=== PATIENT | male | born 1955 | race Caucasian/White ===

== ENCOUNTER → 2018-06-02 | Outpatient (CLI) | payer BC ==
[2018-06-02 10:20] LABS: Appearance,Urine Clear (Clear); Bilirubin,Urine Negative (Negative); Blood,Urine Negative (Negative); Color,Urine Colorless; Glucose,Urine (UA) Negative (Negative); Ketones,Urine Negative (Negative); Leukocyte Esterase,Urine Negative (Negative); Nitrite,Urine Negative (Negative); Protein,Urine Negative (Negative); Specific Gravity,Urine 1.001 (1.001-1.035); Urobilinogen,Urine <2.0 mg/dL (<2.0)
[2018-06-02 10:27] LABS: HCT 49.1 % (39.0-53.0); HGB 15.9 gm/dL (13.0-17.5); MCH 30.6 pg (25.0-35.0); MCHC 32.4 g/dL (31.0-37.0); MCV 94.5 fL (80.0-100.0); Mean Platelet Volume 5.9; Platelet Count 259 k/uL (150-450); RBC 5.19 m/uL (4.30-5.90); RDW 12.4 % (11.5-15.5); WBC 6.6 k/uL (3.8-10.6)
[2018-06-02 10:28] LABS: INR 0.9 (<1.2); Partial Thromboplastin Time 24.2 sec (22.0-30.0); Prothrombin Time 9.7 sec (9.0-12.0)
[2018-06-02 10:35] LABS: Albumin 4.3 g/dL (3.5-5.0); Anion Gap 6 mmol/L; Blood Urea Nitrogen 11 mg/dL (9-20); Calcium 9.5 mg/dL (8.4-10.2); Carbon Dioxide 29 mmol/L (22-30); Chloride 106 mmol/L (98-107); Glucose 115 mg/dL (74-99); Sodium 141 mmol/L (137-145); Total Bilirubin 0.9 mg/dL (0.2-1.3); Total Protein 7.2 g/dL (6.3-8.2)
[2018-06-02 11:23] LABS: AST 32 U/L (17-59); Potassium 5.8 mmol/L (3.5-5.1)
[2018-06-02 11:24] LABS: ALT 31 U/L (21-72); Alkaline Phosphatase 48 U/L (38-126)
== END ==
LOC: LABPAT 09:42
PROVIDERS: ATTEND Orthopaedic Surgery
DX: Z01.812 Encounter for preprocedural laboratory examination (principal)
CPT/HCPCS: 80053; 81003; 85027; 85610; 85730; 87070

== ENCOUNTER 2018-06-14 07:05 | Inpatient (IN) | payer BC ==
[2018-06-10 09:13] VITALS: BMI 24.7
[~2018-06-14 07:05] MED LIST: ACETAMINOPHEN TAB 500 MG TAB PO ONE; HYDROmorphone 0.5 MG/0.5 ML SYRINGE IVP PRN; LIDOCAINE 1% 20 ML VIAL (10MG/ML) FOR IV START INTRADERMA PRN; MELOXICAM 7.5 MG TAB PO ONE; ONDANSETRON 4 MG/2 ML VIAL IVP ONE; ROPIVACAINE 246.25 MG, EPINEPHrine 0.5 MG, KETOROLAC 30 MG, cloNIDine HCL/PF 80 MCG, WA... MISCELLANE ONE; TRANEXAMIC ACID 1,000 MG in SODIUM CHLORIDE 0.9% 50 ML IVPB ONE; ceFAZolin IN SWFI 2 GM/20 ML SYRINGE IVP ONE
[2018-06-14] MEDS: LACTATED RINGERS 1,000 ML IV SCH (07:42)
[2018-06-14] MEDS ORDERED: ONDANSETRON 4 MG/2 ML VIAL IVP PRN (08:58)
[2018-06-14] MEDS ORDERED: NALOXONE 0.4 MG/ML 1 ML VIAL IV PRN (08:58)
[2018-06-14] MEDS ORDERED: DIAZEPAM 5 MG TAB PO PRN (08:58)
[2018-06-14] MEDS ORDERED: HYDROmorphone 1 MG/ML 1 ML SYRINGE IVP PRN (08:58)
[2018-06-14] MEDS ORDERED: MAGNESIUM HYDROXIDE 2,400 MG/10 ML CUP PO PRN (08:58)
[2018-06-14] MEDS ORDERED: hydrOXYzine PAMOATE 25 MG CAP PO PRN (08:58)
[2018-06-14] MEDS ORDERED: HYDROcodone/APAP 5-325MG 1 EACH TAB PO PRN (08:58)
[2018-06-14] MEDS ORDERED: HYDROmorphone 0.5 MG/0.5 ML SYRINGE IVP PRN ×2 (08:58)
[2018-06-14] MEDS ORDERED: HEPARIN SODIUM,PORCINE 10,000 UNIT/ML 1 ML VIAL ONE (09:29)
[2018-06-14] MEDS ORDERED: TRANEXAMIC ACID 1,000 MG/10 ML VIAL ONE (09:29)
[2018-06-14] MEDS ORDERED: SODIUM CHLORIDE 0.9% 100 ML BAG ONE (09:29)
[2018-06-14] MEDS ORDERED: LACTATED RINGERS 1,000 ML BAG IV ONE (09:29)
[2018-06-14] MEDS ORDERED: PROPOFOL 10 MG/ML 20 ML VIAL IV ONE (09:29)
[2018-06-14] MEDS ORDERED: MIDAZOLAM 2 MG/2 ML VIAL ONE (09:29)
[2018-06-14] MEDS ORDERED: ceFAZolin 3,000 MG in SODIUM CHLORIDE 0.9% IRRIGATIO 3,000 ML IRRIGATION ONE (09:34)
[2018-06-14] MEDS ORDERED: LACTATED RINGERS 1,000 ML IV ONE ×3 (09:40→12:42)
--- NOTE | 2018-06-14 10:57 | P.OP ---
Date of Procedure: 06/14/18 Preoperative Diagnosis: Severe osteoarthritis left hip Postoperative Diagnosis: Severe osteoarthritis left hip Procedure(s) Performed: Left total hip arthroplasty with a direct anterior approach Implants: Szymanski and nephew Polarstem size 4 lateral Szymanski [employer] Nephew R3, 3 hole acetabular shell, 54 mm Szymanski [employer] Nephew reflection 6.5 mm cancellus screw, 20 mm 2 Szymanski [employer] Nephew R3, XLPE 20 acetabular liner Szymanski & Nephew Oxinium femoral head 36 m, +0 All components were press-fit. The articulation is Oxinium on polyethylene. Anesthesia: spinal Surgeon: Alexander Curtis Nurse Transplant #1: Mayte Chery Estimated Blood Loss (ml): 225 (55 mL returned with Cell Saver) Pathology: other (Femoral head) Condition: stable Disposition: PACU Indications for Procedure: After failure of conservative treatment we discussed the surgical and nonsurgical treatment options at length. Patient wishes to proceed with a total hip arthroplasty with a direct anterior approach. Complications specific to this procedure were discussed at length, including but not limited to infection, leg length discrepancy, dislocation, and nerve injury. Patient is aware of all these complications and informed consent was obtained Operative Findings: The operative findings are consistent with severe osteoarthritis of the left hip Description of Procedure: Patient was seen and evaluated in the preoperative area, consent was reviewed, and the surgical site was marked with a skin marker. Patient was then brought to the operating room and given prophylactic antibiotics intravenously. 1 g of Tranexamic acid was also given. A spinal anesthetic was administered by the anesthesia department. The patient was then placed on the [place] table with the bony prominences well-padded. The hip area was then prepped and draped in usual sterile fashion. A universal timeout was then performed, which confirmed the patient's name, surgical site, ALLERGIES, and procedure being performed. Next the incision site was located at 1 cm distal and 1 cm lateral to the anterior superior iliac spine. The skin and subcutaneous tissues were sharply incised. Incision was carefully dissected down to the fascia overlying the tensor fascia fidelina muscle. This fascia was then incised in line with the incision. Next, using blunt finger dissection, the tensor fascia fidelina muscle was dissected off its investing fascia. The muscle was then carefully retracted laterally with a cobra retractor over the lateral neck of the femur. Next, the circumflex vessels were identified and cauterized using the AquaMantis device. The anterior hip capsule was then exposed. The capsule was then opened and an inverted T fashion. Cobra retractors were then placed intracapsularly. The proximal femur was then visualized. The femoral neck was then osteotomized appropriate level above the lesser trochanter. Small amount of traction was placed with the [place] table. A small wedge of bone was then removed from the remaining femoral head. Next, using a corkscrew femoral head was easily removed from the acetabulum. On gross visual inspection, the femoral head had complete loss of articular cartilage in multiple periarticular osteophytes. Attention was then turned to the acetabulum. the acetabulum was exposed and any remaining labrum was excised. Sequential reaming of the acetabulum was performed using fluoroscopic guidance. When the appropriate size was reached, a trial was then placed. The position and fit of the trial was checked with fluoroscopy. The trial was then removed. Then, using fluoroscopic guidance, the final implant was impacted at 20 of anteversion and 40 of abduction, and fully seated in the acetabulum. 2 screws were then placed in the acetabulum. Again fluoroscopy was used to check position of the screws. Next, the liner was then impacted, with a 20 elevated liner located in the anterior superior quadrant. Component locking was confirmed. Attention was then directed to the femur. With the aid of the [place] table, the femur was externally rotated to approximately 130, extended, and abducted under the opposite leg. A side hook was then placed under the proximal femur, and the side hook elevator was used to elevate the proximal femur. Retractors were then placed. A capsular release was performed, as well as a release of the conjoined tendon, which afforded excellent visualization of the proximal femur. Next, a box osteotome was used to lateralize the proximal femur. A filling hand was then used to locate the femoral canal. Sequential broaching was then performed with appropriate size which afforded excellent fixation in the proximal femur. A trial was then placed with appropriate head and neck, and the hip was gently reduced with the aid of the [place] table. Fluoroscopy was then used to check position of the components, as well as to ensure equal leg lengths. The hip was then gently dislocated and the trials were then removed. Final implants were then impacted and the hip was again reduced. Final fluoroscopic x-rays confirmed that the components were in anatomic position, as well as equal leg lengths. The hip was also taken through range of motion, and found to be stable. The hip was then copiously irrigated with antibiotic solution with pulsatile lavage. The hip was then irrigated with Irrisept solution. The soft tissues were then injected with a ropivacaine solution, which consisted of 246.25 mg of ropivacaine, 0.5 mg of epinephrine, 30 mg of Toradol, 80 g of clonidine, and 48.45 mL of sterile water, for a total of 100 mL of fluid injected. A second dose of 1 g of Tranexamic acid was also given. the fascia was then closed with 2-0 strata fix suture. The subcutaneous tissue was closed with 3-0 Vicryl. The subcuticular tissue was closed with 3-0 strata fix suture. The skin was then closed with Dermabond glue and a sterile silver dressing. The patient was then transferred to the recovery room in stable condition. The leasing assistant SUE Biggs was required due to the complexity of surgery, and the need for skilled certified surgical technician for positioning, draping, exposure, retraction, and closure of the wound.
--- NOTE | 2018-06-14 11:19 | XR ---
EXAMINATION TYPE: XR Hip Limited LT DATE OF EXAM: 06/14/2018 COMPARISON: NONE HISTORY: Postop TECHNIQUE: One view submitted. FINDINGS: There is a prosthetic hip in near anatomic alignment. There is soft tissue edema and emphysema. IMPRESSION: 1. Postoperative change. Appears in near-anatomic alignment.
--- NOTE | 2018-06-14 11:29 | FL ---
Fluoroscopy History: LT HIP-ANT 42 sec fl time.
--- NOTE | 2018-06-14 11:38 | XR ---
EXAMINATION TYPE: XR Hip Limited LT DATE OF EXAM: 06/14/2018 COMPARISON: NONE HISTORY: Postop TECHNIQUE: One view submitted. FINDINGS: There is a prosthetic hip in near anatomic alignment. There is soft tissue edema and emphysema. Line ar density along the lateral margin of the soft tissues may be related to soft tissue artifact and sh ould be correlated clinically. IMPRESSION: 1. Postoperative change. Appears in near-anatomic alignment.
[2018-06-14] MEDS: SODIUM CHLORIDE 0.9% 1,000 ML IV SCH ×2 (16:20→23:15)
[2018-06-14] MEDS ORDERED: ACETAMINOPHEN TAB 325 MG TAB PO PRN (16:41)
[2018-06-14] MEDS: ceFAZolin IN SWFI 2 GM/20 ML SYRINGE IVP SCH (16:56)
[2018-06-14] MEDS ORDERED: SENNOSIDES-DOCUSATE SODIUM 1 EACH TAB PO SCH (21:00)
[2018-06-14] MEDS ORDERED: ACETAMINOPHEN TAB 500 MG TAB PO PRN ×3 (21:09→22:13)
[2018-06-14] MEDS: ASPIRIN 325 MG TAB PO SCH (22:20)
[2018-06-15 00:46] VITALS: TEMP 98.9
[2018-06-15] MEDS: ceFAZolin IN SWFI 2 GM/20 ML SYRINGE IVP SCH (02:52)
[2018-06-15] MEDS: HYDROcodone/APAP 5-325MG 1 EACH TAB PO PRN ×2 (03:07→13:54)
[2018-06-15] MEDS: LACTATED RINGERS 1,000 ML IV SCH (07:01)
[2018-06-15 07:18] LABS: Basophils % (A) 0 %; Eosinophils # (A) 0.2 k/uL (0-0.7); Eosinophils % (A) 2 %; HCT 38.1 % (39.0-53.0); Lymphocytes # (A) 1.1 k/uL (1.0-4.8); Lymphocytes % (A) 9 %; MCH 31.6 pg (25.0-35.0); MCHC 33.9 g/dL (31.0-37.0); MCV 93.2 fL (80.0-100.0); Mean Platelet Volume 6.5; Monocytes # (A) 0.5 k/uL (0-1.0); Monocytes % (A) 5 %; Neutrophils # (A) 9.2 k/uL (1.3-7.7); Neutrophils % (A) 83 %; Platelet Count 189 k/uL (150-450); RBC 4.09 m/uL (4.30-5.90); RDW 12.5 % (11.5-15.5); WBC 11.1 k/uL (3.8-10.6)
[2018-06-15 07:43] LABS: HGB 12.9 gm/dL (13.0-17.5)
[2018-06-15 07:56] VITALS: BP 106/67; PULSE 69; RESP 16
[2018-06-15] MEDS: ASPIRIN 325 MG TAB PO SCH (08:35)
--- NOTE | 2018-06-15 08:59 | P.DS ---
Providers Date of admission: 06/14/18 07:05 Expected date of discharge: 06/15/18 Attending physician: Alexander Curtis Consults: 06/14/18 08:58 Consult Physician Routine Consulting Provider: Wong Liriano Reason/Comments: medical management Do you want consulting provider notified?: Yes Primary care physician: Hari Lyn Kut - Discharge Diagnosis(es) (1) Osteoarthritis of left hip Current Visit: Yes Status: Acute (2) Status post total hip replacement, left Current Visit: Yes Status: Acute Hospital Course: This is a 62-year-old male with known history of degenerative arthritis of the left hip. The patient presents for evaluation. After discussion and consideration patient elects to proceed with total hip arthroplasty. The patient is seen preoperatively by Dr. Curtis and medically cleared for surgery by their primary care physician. Patient is admitted to [facility] on 06/14/2018 for total hip arthroplasty. The procedures performed without complication or sequelae. The patient is doing well postoperatively. Labs and vital signs are stable on day of discharge. On day of discharge patient's hip incision is healing well. There is minimal erythema. There is no drainage noted at this time. There is minimal soft tissue swelling to the hip and thigh. Patient has full foot and ankle motion without difficulty or pain. Neurovascular status to the left lower extremity is intact. Patient is discharged home in good condition. Please see med rec for accurate list of home medications. Plan - Discharge Summary Discharge Rx Participant: No New Discharge Prescriptions: New Aspirin 325 mg PO BID #60 tab HYDROcodone/APAP 5-325MG [[place] 5-325] 1 - 2 tab PO Q6H PRN #56 tab PRN Reason: Pain Sennosides [Senokot] 1 tab PO BID #60 tablet No Action Multivit-Min/FA/Lycopen/Lutein [Centrum Silver Tablet] 1 tab PO DAILY Acetaminophen Tab [Tylenol Tab] 500 mg PO DAILY PRN PRN Reason: Pain Ibuprofen [Motrin] 600 mg PO BID PRN PRN Reason: Pain Discharge Medication List Acetaminophen Tab [Tylenol Tab] 500 mg PO DAILY PRN 06/10/18 [History] Multivit-Min/FA/Lycopen/Lutein [Centrum Silver Tablet] 1 tab PO DAILY 06/10/18 [ History] Ibuprofen [Motrin] 600 mg PO BID PRN 01/29/19 [History] Aspirin 325 mg PO BID #60 tab 06/15/18 [Rx] HYDROcodone/APAP 5-325MG [[place] 5-325] 1 - 2 tab PO Q6H PRN #56 tab 06/15/18 [Rx ] Sennosides [Senokot] 1 tab PO BID #60 tablet 06/15/18 [Rx] Follow up Appointment(s)/Referral(s): Alexander Curtis DO [Doctor of Osteopathic Medicine] - 2 Weeks Activity/Diet/Wound Care/Special Instructions: Weightbearing as tolerated with walker. Leave dressing intact. Dressing may be removed by home care nurse in 10 days. May shower with dressing on. Please follow-up with [facility] in 2 weeks and call with any questions or concerns, . Discharge Disposition: HOME WITH HOME HEALTH SERVICES
[2018-06-15] MEDS ORDERED: MELOXICAM 7.5 MG TAB PO SCH (09:00)
--- NOTE | 2018-06-15 11:22 | P.CONS ---
History of Present Illness - Reason for Consult Consult date: 06/14/18 medical management Requesting physician: Alexander Curtis - Chief Complaint left total hip arthroplasty - History of Present Illness 8-year-old male one of Dr. Hanson patient with past medical history of severe arthritis BPH who has been suffering from bilateral hip pain since 89 according to him has been getting much worse in the last year become over 7 out of 10 in severity both side are bad the left is worse than the right side. Patient was seen and evaluated as an outpatient with Dr. Curtis and schedule elective left total hip arthroplasty which was done successfully on 06/14/2018. Patient was admitted to the floor afterward restart home meds, patient is hemodynamically stable and feeling well. Review of Systems CONSTITUTIONAL: Well-developed no acute respiratory distress. EYES: No icterus sclerae, no conjunctivitis. EARS, NOSE, MOUTH, THROAT, and FACE: No sore throat, lymphadenopathy, carotid bruits or deformity. RESPIRATORY: No SOB cough or wheezes. CARDIOVASCULAR: No CP, Palpitation, PND, Orthopnea, or angina. GASTROINTESTINAL: No Abd pain, Nausea or vomiting, no Diarrhea or constipation, No GI Bleed, no distention or masses. GENITOURINARY: Negative for Hematuria or UTI, no kidney stones. INTEGUMENT/BREAST: Negative for any muscular injury with mild osteoarthritis.. HEMATOLOGIC/LYMPHATIC: Negative for bleed or purpura. MUSCULOSKELTAL: Incision and the hip looks fine still have mild soreness and discomfort still complaining of right hip pain as well. NEURLOGICAL: No LOC, Sz or syncope, blurred vision dizziness or abnormality.. BEHAVIORAL/PSYCH: Negative. ENDOCRINE: Negative. Past Medical History Past Medical History: Osteoarthritis (OA) Additional Past Medical History / Comment(s): recent cut to left hand no signs of infection to report to any signs of infection History of Any Multi-Drug Resistant Organisms: None Reported Additional Past Surgical History / Comment(s): hemorrhoid removal 1995 Past Anesthesia/Blood Transfusion Reactions: No Reported Reaction Past Psychological History: No Psychological Hx Reported Smoking Status: Former smoker Past Alcohol Use History: Daily Additional Past Alcohol Use History / Comment(s): smoked 30 yrs 1ppd quit 2010. Drinks 3-4 beers daily. Last intake Wednesday. No recreational drug use. Past Drug Use History: None Reported - Past Family History Father Family Medical History: Cancer Additional Family Medical History / Comment(s): state 4 lung cancer Mother Additional Family Medical History / Comment(s): Mother dies in her 90s from old age. Brother(s) Additional Family Medical History / Comment(s): 5 siblings with addiction problems. One sister has brain aneurysm. One sister from nonhodgkins lymphoma with history of aids. Daughter(s) Additional Family Medical History / Comment(s): 2 children: 1 adopet, 1 biological Medications and Allergies Home Medications Medication Instructions Recorded Confirmed Type Acetaminophen Tab [Tylenol Tab] 500 mg PO DAILY PRN 06/10/18 06/14/18 History Multivit-Min/FA/Lycopen/Lutein 1 tab PO DAILY 06/10/18 06/14/18 History [Centrum Silver Tablet] Ibuprofen [Motrin] 600 mg PO BID PRN 06/14/18 06/14/18 History Aspirin 325 mg PO BID #60 tab 06/15/18 Rx HYDROcodone/APAP 5-325MG [Interior 1 - 2 tab PO Q6H PRN #56 tab 06/15/18 Rx 5-325] Sennosides [Senokot] 1 tab PO BID #60 tablet 06/15/18 Rx Allergies Allergy/AdvReac Type Severity Reaction Status Date / Time No Known Allergies Allergy Verified 06/14/18 15:15 Physical Exam Vitals: Vital Signs Temp Pulse Resp BP Pulse Ox 06/14/18 16:00 80 16 06/14/18 15:00 98.1 F 80 16 129/75 98 06/14/18 14:00 74 16 121/68 97 06/14/18 13:28 64 16 128/82 99 06/14/18 12:45 51 L 16 141/79 99 06/14/18 12:15 46 L 15 146/80 100 06/14/18 11:45 50 L 16 124/58 100 06/14/18 11:30 56 L 18 114/75 96 06/14/18 11:15 72 16 107/59 100 06/14/18 11:04 97.1 F L 89 12 113/62 99 06/14/18 07:40 98.0 F 68 18 134/75 98 Intake and Output 06/14/18 06/14/18 06/14/18 06:59 14:59 22:59 Intake Total 2001 Output Total 225 900 Balance 1776 -900 Intake: IV 2000 Output: Urine 900 Estimated Blood Loss 225 General Appearance: Alert, cooperative, no distress, appears stated age. Neck HEENT: Supple, no lymphadenopathy, no thyroid enlargement, no carotid bruits. Lungs: Clear to auscultation without crackles or wheezes no rhonchi, no deformity. Chest Wall: Chest wall normal expansion with deep inspiration no tenderness and no deformity was found on exam, no costochondral pain or discomfort. Heart: Regular rate and rhythm, S1, S2 normal, no murmur, rub or gallop. Back: Symmetric, no curvature, ROM normal, no CVA tenderness. Abdomen: Soft, non-tender, bowel sounds active all four quadrants, no masses, no organomegaly. Extremities: Incision in the left hip is in anterior with no induration redness or major tenderness. Pulses: 2+ and symmetric. Skin: Skin color, texture, tugor normal, no rashes or lesions. Neurologic: Alert oriented x3 cranial nerves II through XII intact, no motor deficit, no abnormal balance or gait. Results CBC & Chem 7: 06/15/18 06:38 06/14/18 07:38 Assessment and Plan Plan: 1 left total hip arthropla: Surgery was done successful ration will be watch hemodynamically, med reconsultation was done also GI DVT and pulmonary prophylaxis protocol will be implemented ex 2 BPH: Watch for any urinary retention. 3 pain control: Patient is on Dilaudid and hydrocodone orally. 4 DVT prophylaxis: Patient will be on aspirin only if any increased risk patient might benefit from Xarelto for the next 14 days. 5 GI prophylaxis: Patient will be on Pepcid 20 mg daily. CODE STATUS: Full code. Dr. Curtis thank you very much for the consult more than happy to see this gentleman along with you in the hospital I can be any further help to please let me know
[2018-06-15] MEDS ORDERED: MULTIVITAMINS, THERA 1 EACH TAB PO SCH (12:00)
--- NOTE | 2018-06-15 15:23 | P.PN ---
Subjective Progress Note Date: 06/15/18 62-year-old male one of Dr. Hanson patient with past medical history of severe arthritis BPH who has been suffering from bilateral hip pain since 89 according to him has been getting much worse in the last year become over 7 out of 10 in severity both side are bad the left is worse than the right side. Patient was seen and evaluated as an outpatient with Dr. Curtis and schedule elective left total hip arthroplasty which was done successfully on 06/14/2018. Patient was admitted to the floor afterward restart home meds, patient is hemodynamically stable and feeling well. 06/15: Review of Systems CONSTITUTIONAL: Well-developed no acute respiratory distress. EYES: No icterus sclerae, no conjunctivitis. EARS, NOSE, MOUTH, THROAT, and FACE: No sore throat, lymphadenopathy, carotid bruits or deformity. RESPIRATORY: No SOB cough or wheezes. CARDIOVASCULAR: No CP, Palpitation, PND, Orthopnea, or angina. GASTROINTESTINAL: No Abd pain, Nausea or vomiting, no Diarrhea or constipation, No GI Bleed, no distention or masses. GENITOURINARY: Negative for Hematuria or UTI, no kidney stones. INTEGUMENT/BREAST: Negative for any muscular injury with mild osteoarthritis.. HEMATOLOGIC/LYMPHATIC: Negative for bleed or purpura. MUSCULOSKELTAL: Incision and the hip looks fine still have mild soreness and discomfort still complaining of right hip pain as well. NEURLOGICAL: No LOC, Sz or syncope, blurred vision dizziness or abnormality.. BEHAVIORAL/PSYCH: Negative. ENDOCRINE: Negative. Objective - Vital Signs Vital signs: Vital Signs Temp 98.9 F 06/15/18 07:00 Pulse 69 06/15/18 07:00 Resp 16 06/15/18 07:00 BP 106/67 06/15/18 07:00 Pulse Ox 93 L 06/15/18 07:00 Intake & Output 06/14/18 06/15/18 06/15/18 18:59 06:59 18:59 Intake Total 2000 Output Total 1125 400 500 Balance 876 -400 -500 Intake: IV 2000 Output: Urine 900 400 500 Estimated Blood Loss 225 - Exam General Appearance: Alert, cooperative, no distress, appears stated age. Neck HEENT: Supple, no lymphadenopathy, no thyroid enlargement, no carotid bruits. Lungs: Clear to auscultation without crackles or wheezes no rhonchi, no deformity. Chest Wall: Chest wall normal expansion with deep inspiration no tenderness and no deformity was found on exam, no costochondral pain or discomfort. Heart: Regular rate and rhythm, S1, S2 normal, no murmur, rub or gallop. Back: Symmetric, no curvature, ROM normal, no CVA tenderness. Abdomen: Soft, non-tender, bowel sounds active all four quadrants, no masses, no organomegaly. Extremities: Incision in the left hip is in anterior with no induration redness or major tenderness. Pulses: 2+ and symmetric. Skin: Skin color, texture, tugor normal, no rashes or lesions. Neurologic: Alert oriented x3 cranial nerves II through XII intact, no motor deficit, no abnormal balance or gait. - Labs CBC & Chem 7: 06/15/18 06:38 06/14/18 07:38 Labs: Abnormal Lab Results - Last 24 Hours (Table) 06/15/18 Range/Units 06:38 WBC 11.1 H (3.8-10.6) k/uL RBC 4.09 L (4.30-5.90) m/uL Hgb 12.9 L D (13.0-17.5) gm/dL Hct 38.1 L (39.0-53.0) % Neutrophils # 9.2 H (1.3-7.7) k/uL Assessment and Plan Plan: 1 left total hip arthropla: Surgery was done successful ration will be watch hemodynamically, med reconsultation was done also GI DVT and pulmonary prophylaxis protocol will be implemented ex 2 BPH: Watch for any urinary retention. 3 pain control: Patient is on Dilaudid and hydrocodone orally. 4 DVT prophylaxis: Patient will be on aspirin only if any increased risk patient might benefit from Xarelto for the next 14 days. 5 GI prophylaxis: Patient will be on Pepcid 20 mg daily. CODE STATUS: Full code. Discharge plan: Home Impression and plan of care have been directed as dictated by the signing physician. Hollie Daniels nurse practitioner acting as scribe for signing physician.
== END 2018-06-15 14:04 | disposition home health service (06) | DRG 470 ==
LOC: 2ORMAIN 07:05 → 4SSUR 14:06
PROVIDERS: ADMIT Orthopaedic Surgery; ATTEND Orthopaedic Surgery
PROC: 0SRB06A Replacement of Left Hip Joint with Oxidized Zirconium on Polyethylene Synthetic Substitute, Uncemented, Open Approach (ICD-10-PCS; principal; 2018-06-14 09:15)
DX: M16.12 Unilateral primary osteoarthritis, left hip (principal); N40.0 Benign prostatic hyperplasia without lower urinary tract symptoms; Z79.82 Long term (current) use of aspirin; Z80.1 Family history of malignant neoplasm of trachea, bronchus and lung; Z80.7 Family history of other malignant neoplasms of lymphoid, hematopoietic and related tissues; Z83.0 Family history of human immunodeficiency virus [HIV] disease; Z87.891 Personal history of nicotine dependence; Z81.4 Family history of other substance abuse and dependence
CPT/HCPCS: 73501; 84132; 85025; 86850; 86891; 86900; 86901; 88300

== ENCOUNTER → 2018-08-01 | Outpatient (CLI) | payer BC ==
[2018-08-01 14:24] LABS: HCT 47.5 % (39.0-53.0); HGB 15.8 gm/dL (13.0-17.5); MCH 30.3 pg (25.0-35.0); MCHC 33.3 g/dL (31.0-37.0); MCV 90.8 fL (80.0-100.0); Mean Platelet Volume 7.3; Platelet Count 239 k/uL (150-450); RBC 5.23 m/uL (4.30-5.90); RDW 12.8 % (11.5-15.5); WBC 8.8 k/uL (3.8-10.6)
[2018-08-01 14:28] LABS: Appearance,Urine Clear (Clear); Bacteria,Urine Rare /hpf; Bilirubin,Urine Negative (Negative); Blood,Urine Trace (Negative); Color,Urine Light Yellow; Glucose,Urine (UA) Negative (Negative); Ketones,Urine Negative (Negative); Leukocyte Esterase,Urine Negative (Negative); Mucus,Urine Rare /hpf; Nitrite,Urine Negative (Negative); PH, Urine 6.5 (5.0-8.0); Protein,Urine Negative (Negative); RBC,Urine 2 /hpf (0-5); Specific Gravity,Urine 1.005 (1.001-1.035); Urobilinogen,Urine <2.0 mg/dL (<2.0)
[2018-08-01 14:31] LABS: INR 0.9 (<1.2); Partial Thromboplastin Time 23.7 sec (22.0-30.0); Prothrombin Time 9.7 sec (9.0-12.0)
[2018-08-01 14:34] LABS: ALT 32 U/L (21-72); AST 22 U/L (17-59); Alkaline Phosphatase 69 U/L (38-126); Anion Gap 6 mmol/L; Blood Urea Nitrogen 13 mg/dL (9-20); Calcium 9.6 mg/dL (8.4-10.2); Carbon Dioxide 27 mmol/L (22-30); Chloride 105 mmol/L (98-107); Glucose 86 mg/dL (74-99); Potassium 4.4 mmol/L (3.5-5.1); Sodium 138 mmol/L (137-145); Total Bilirubin 0.7 mg/dL (0.2-1.3); Total Protein 6.9 g/dL (6.3-8.2)
== END | disposition home or self-care (01) ==
LOC: LABPAT 13:05
PROVIDERS: ATTEND Orthopaedic Surgery
DX: Z01.818 Encounter for other preprocedural examination (principal); M16.11 Unilateral primary osteoarthritis, right hip; Z01.812 Encounter for preprocedural laboratory examination
CPT/HCPCS: 80053; 81001; 85027; 85610; 85730; 87070; 93005

== ENCOUNTER 2018-08-09 09:06 | Inpatient (IN) | payer BC ==
[2018-08-01 10:29] VITALS: BMI 26.8
[~2018-08-09 09:06] MED LIST changes: +DEXAMETHASONE SOD PHOSPHATE 10 MG/ML 1 ML VIAL IV ONE; -LIDOCAINE 1% 20 ML VIAL (10MG/ML) FOR IV START INTRADERMA PRN; +MIDAZOLAM (PF) 2 MG/2 ML VIAL IV PRN; +SCOPOLAMINE 1.5MG/72HR PATCH TRANSDERM ONE; +TRANEXAMIC ACID 1,000 MG in SODIUM CHLORIDE 0.9% 100 ML IVPB ONE; -TRANEXAMIC ACID 1,000 MG in SODIUM CHLORIDE 0.9% 50 ML IVPB ONE
[2018-08-09] MEDS: LACTATED RINGERS 1,000 ML IV SCH (09:40)
[2018-08-09] MEDS ORDERED: fentaNYL (PF) 50 MCG/ML 2 ML AMP ONE (11:16)
[2018-08-09] MEDS ORDERED: SODIUM CHLORIDE 0.9% 100 ML BAG ONE (11:16)
[2018-08-09] MEDS ORDERED: PROPOFOL 10 MG/ML 20 ML VIAL IV ONE (11:16)
[2018-08-09] MEDS ORDERED: MIDAZOLAM 2 MG/2 ML VIAL ONE (11:16)
[2018-08-09] MEDS ORDERED: TRANEXAMIC ACID 1,000 MG/10 ML VIAL ONE (11:16)
[2018-08-09] MEDS ORDERED: HEPARIN SODIUM,PORCINE 10,000 UNIT/ML 1 ML VIAL ONE (11:16)
[2018-08-09] MEDS ORDERED: SODIUM CHLORIDE 0.9% IRRIG 1,000 ML BTL IRRIGATION ONE (11:16)
[2018-08-09] MEDS ORDERED: PHENYLEPHRINE-0.9% NACL SYG 1 MG/10 ML SYRINGE ONE (11:16)
[2018-08-09] MEDS ORDERED: ceFAZolin 3,000 MG in SODIUM CHLORIDE 0.9% IRRIGATIO 3,000 ML IRRIGATION ONE (11:21)
[2018-08-09] MEDS ORDERED: LACTATED RINGERS 1,000 ML IV ONE (12:20)
--- NOTE | 2018-08-09 12:51 | P.OP ---
Date of Procedure: 08/09/18 Preoperative Diagnosis: Severe osteoarthritis right hip Postoperative Diagnosis: Severe osteoarthritis right hip Procedure(s) Performed: Right total hip arthroplasty with a direct anterior approach Implants: Szymanski and nephew Polarstem size 4 standard Szymanski & Nephew R3, 3 hole acetabular shell, 54 mm Szymanski & Nephew reflection 6.5 mm cancellus screw, 20 mm 2 Szymanski & Nephew R3, XLPE 20 acetabular liner Szymanski & Nephew Oxinium femoral head 36 m, +8 All components were press-fit. The articulation is Oxinium on polyethylene. Anesthesia: spinal Surgeon: Alexander Curtis Scrap Picker #1: Mayte Chery Estimated Blood Loss (ml): 250 (107 mL returned with Cell Saver) Pathology: other (femoral head) Condition: stable Disposition: PACU Indications for Procedure: After failure of conservative treatment we discussed the surgical and nonsurgical treatment options at length. Patient wishes to proceed with a total hip arthroplasty with a direct anterior approach. Complications specific to this procedure were discussed at length, including but not limited to infection, leg length discrepancy, dislocation, and nerve injury. Patient is aware of all these complications and informed consent was obtained Operative Findings: The operative findings are consistent with severe osteoarthritis of the right hip Description of Procedure: Patient was seen and evaluated in the preoperative area, consent was reviewed, and the surgical site was marked with a skin marker. Patient was then brought to the operating room and given prophylactic antibiotics intravenously. 1 g of Tranexamic acid was also given. A spinal anesthetic was administered by the anesthesia department. The patient was then placed on the Leon table with the bony prominences well-padded. The hip area was then prepped and draped in usual sterile fashion. A universal timeout was then performed, which confirmed the patient's name, surgical site, ALLERGIES, and procedure being performed. Next the incision site was located at 1 cm distal and 1 cm lateral to the anterior superior iliac spine. The skin and subcutaneous tissues were sharply incised. Incision was carefully dissected down to the fascia overlying the tensor fascia fidelina muscle. This fascia was then incised in line with the incision. Next, using blunt finger dissection, the tensor fascia fidleina muscle was dissected off its investing fascia. The muscle was then carefully retracted laterally with a cobra retractor over the lateral neck of the femur. Next, the circumflex vessels were identified and cauterized using the AquaMantis device. The anterior hip capsule was then exposed. The capsule was then opened and an inverted T fashion. Cobra retractors were then placed intracapsularly. The proximal femur was then visualized. The femoral neck was then osteotomized appropriate level above the lesser trochanter. Small amount of traction was placed with the Leon table. A small wedge of bone was then removed from the remaining femoral head. Next, using a corkscrew femoral head was easily removed from the acetabulum. On gross visual inspection, the femoral head had complete loss of articular cartilage in m ultiple periarticular osteophytes. Attention was then turned to the acetabulum. the acetabulum was exposed and any remaining labrum was excised. Sequential reaming of the acetabulum was performed using fluoroscopic guidance. When the appropriate size was reached, a trial was then placed. The position and fit of the trial was checked with fluoroscopy. The trial was then removed. Then, using fluoroscopic guidance, the final implant was impacted at 20 of anteversion and 40 of abduction, and fully seated in the acetabulum. 2 screws were then placed in the acetabulum. Again fluoroscopy was used to check position of the screws. Next, the liner was then impacted, with a 20 elevated liner located in the anterior superior quadrant. Component locking was confirmed. Attention was then directed to the femur. With the aid of the Leon table, the femur was externally rotated to approximately 130, extended, and abducted under the opposite leg. A side hook was then placed under the proximal femur, and the side hook elevator was used to elevate the proximal femur. Retractors were then placed. A capsular release was performed, as well as a release of the conjoined tendon, which afforded excellent visualization of the proximal femur. Next, a box osteotome was used to lateralize the proximal femur. A stock handler was then used to locate the femoral canal. Sequential broaching was then performed with appropriate size which afforded excellent fixation in the proximal femur. A trial was then placed with appropriate head and neck, and the hip was gently reduced with the aid of the Leon table. Fluoroscopy was then used to check position of the components, as well as to ensure equal leg lengths. The hip was then gently dislocated and the trials were then removed. Final implants were then impacted and the hip was again reduced. Final fluoroscopic x-rays confirmed that the components were in anatomic position, as well as equal leg lengths. The hip was also taken through range of motion, and found to be stable. The hip was then copiously irrigated with antibiotic solution with pulsatile lavage. The hip was then irrigated with Irrisept solution. The soft tissues were then injected with a ropivacaine solution, which consisted of 246.25 mg of ropivacaine, 0.5 mg of epinephrine, 30 mg of Toradol, 80 g of clonidine, and 48.45 mL of sterile water, for a total of 100 mL of fluid injected. A second dose of 1 g of Tranexamic acid was also given. the fascia was then closed with 2-0 strata fix suture. The subcutaneous tissue was closed with 3-0 Vicryl. The subcuticular tissue was closed with 3-0 strata fix suture. The skin was then closed with Dermabond glue and a sterile silver dressing. The patient was then transferred to the recovery room in stable c ondition. The commissary assistant SUE Biggs was required due to the complexity of surgery, and the need for skilled surgical instrument maker for positioning, draping, exposure, retraction, and closure of the wound.
--- NOTE | 2018-08-09 12:59 | XR ---
Fluoroscopy History: HARDWARE PLACEMENT 1MIN 6 SEC FLUORO, 2 IMAGES SCANNED INTO PACS
[2018-08-09] MEDS ORDERED: DIAZEPAM 5 MG TAB PO PRN (13:05)
[2018-08-09] MEDS ORDERED: NALOXONE 0.4 MG/ML 1 ML VIAL IV PRN (13:05)
[2018-08-09] MEDS ORDERED: HYDROcodone/APAP 5-325MG 1 EACH TAB PO PRN (13:05)
[2018-08-09] MEDS ORDERED: HYDROmorphone 1 MG/ML 1 ML SYRINGE IVP PRN (13:05)
[2018-08-09] MEDS ORDERED: HYDROmorphone 0.5 MG/0.5 ML SYRINGE IVP PRN ×2 (13:05)
[2018-08-09] MEDS ORDERED: ONDANSETRON 4 MG/2 ML VIAL IVP PRN (13:05)
[2018-08-09] MEDS ORDERED: hydrOXYzine PAMOATE 25 MG CAP PO PRN (13:05)
[2018-08-09] MEDS ORDERED: MAGNESIUM HYDROXIDE 2,400 MG/10 ML CUP PO PRN (13:05)
--- NOTE | 2018-08-09 13:41 | XR ---
EXAMINATION TYPE: XR Hip Limited RT DATE OF EXAM: 08/09/2018 CLINICAL HISTORY: Postoperative evaluation TECHNIQUE: Single portable view of the right hip was submitted. FINDINGS: Noted are changes of total hip arthroplasty with femoral and acetabular components appearin g well seated. Alignment is anatomic. Postsurgical soft tissue changes are evident. IMPRESSION: Satisfactory postoperative alignment
--- NOTE | 2018-08-09 15:13 | P.CONS ---
History of Present Illness - Reason for Consult Consult date: 08/09/18 Medical management - History of Present Illness This is a 63-year-old male patient of Dr. Wood with past medical history of benign prostatic hypertrophy, severe arthritis with bilateral hip pain since 1992. He recently came in the hospital in May underwent a left total hip arthroplasty which was done successfully and patient had no postop complications. Patient is now admitted under the care of Dr. Curtis for right total hip arthroplasty anterior approach. The patient is seen in the postop period. He denies any pain at this time. He has been started on clear liquids and tolerating without nausea or vomiting. Blood pressure is stable. Review of Systems All systems: negative Constitutional: Denies chills, Denies fever Eyes: denies blurred vision, denies pain Ears, nose, mouth and throat: Denies headache, Denies sore throat Cardiovascular: Denies chest pain, Denies shortness of breath Respiratory: Denies cough Gastrointestinal: Denies abdominal pain, Denies diarrhea, Denies nausea, Denies vomiting Musculoskeletal: Denies myalgias Integumentary: Denies pruritus, Denies rash Neurological: Denies numbness, Denies weakness Psychiatric: Denies anxiety, Denies depression Endocrine: Denies fatigue, Denies weight change Past Medical History Past Medical History: Osteoarthritis (OA) Additional Past Medical History / Comment(s): recent cut to left hand no signs of infection to report to any signs of infection History of Any Multi-Drug Resistant Organisms: None Reported Past Surgical History: Joint Replacement Additional Past Surgical History / Comment(s): hemorrhoid removal 1995. LT GAMALIEL Past Anesthesia/Blood Transfusion Reactions: No Reported Reaction Smoking Status: Former smoker Additional Past Alcohol Use History / Comment(s): Patient was a smoker one pack per day for 30 years and quit in 2010. Patient drinks 3-4 beers per day. No recreational drug use. - Past Family History Father Family Medical History: Cancer Additional Family Medical History / Comment(s): state 4 lung cancer Mother Additional Family Medical History / Comment(s): Mother dies in her 90s from old age. Brother(s) Family Medical History: Cancer Additional Family Medical History / Comment(s): 5 siblings with addiction problems. One sister has brain aneurysm. One sister from nonhodgkins lym phoma with history of AIDS. Daughter(s) Additional Family Medical History / Comment(s): 2 children: 1 adopted, 1 biological Medications and Allergies Home Medications Medication Instructions Recorded Confirmed Type Acetaminophen Tab [Tylenol Tab] 500 mg PO DAILY PRN 06/10/18 08/09/18 History Multivit-Min/FA/Lycopen/Lutein 1 tab PO DAILY 06/10/18 08/09/18 History [Centrum Silver Tablet] Ibuprofen [Motrin] 600 mg PO BID PRN 06/14/18 08/09/18 History Allergies Allergy/AdvReac Type Severity Reaction Status Date / Time No Known Allergies Allergy Verified 08/09/18 14:05 Physical Exam Vitals: Vital Signs Temp Pulse Pulse Resp BP Pulse Ox 08/09/18 13:46 70 16 97/67 99 08/09/18 13:31 61 16 97/58 99 08/09/18 13:16 73 18 98/58 97 08/09/18 13:01 97 F L 82 18 102/62 97 08/09/18 09:41 98 F 77 17 143/77 96 Intake and Output 08/09/18 08/09/18 08/09/18 06:59 14:59 22:59 Intake Total 1201 Output Total 250 Balance 951 Intake: IV 1201 Output: Estimated Blood Loss 250 Gen: This is a 63-year-old male. He is resting in bed and appears to be comfortable and in no acute distress. HEENT: Head is atraumatic, normocephalic. Pupils equal, round. Sclerae is anicteric. NECK: Supple. No JVD. No lymphadenopathy. No thyromegaly. LUNGS: Clear to auscultation. No wheezes or rhonchi. No intercostal retractio ns. HEART: Regular rate and rhythm. No murmur. ABDOMEN: Soft. Bowel sounds are present. No masses. No tenderness. EXTREMITIES: No pedal edema. No calf tenderness. Dorsalis pedis +2 bilaterally. Patient has small dressing in place to the right anterior hip with no breakthrough bleeding or drainage. NEUROLOGICAL: Patient is awake, alert and oriented x3. Cranial nerves 2 through 12 are grossly intact. Assessment and Plan Plan: 1. Osteoarthritis status post right total hip arthroplasty, anterior approach. Continue current plan per orthopedics, pain management, PT and OT and activity. 2. Benign prostatic hypertrophy. Monitor for urinary retention. 3. DVT prophylaxis. Aspirin 325 mg twice daily. 4. GI prophylaxis. Pepcid Discharge plan: Home tomorrow with home care Impression and plan of care have been directed as dictated by the signing physician. Hollie Daniels nurse practitioner acting as scribe for signing physician.
[2018-08-09] MEDS: HYDROcodone/APAP 5-325MG 1 EACH TAB PO PRN (16:25)
[2018-08-09] MEDS: ceFAZolin IN SWFI 2 GM/20 ML SYRINGE IVP SCH ×2 (16:26→23:47)
[2018-08-09] MEDS: SODIUM CHLORIDE 0.9% 1,000 ML IV SCH ×2 (17:37→23:54)
[2018-08-09] MEDS: ASPIRIN 325 MG TAB PO SCH (20:11)
[2018-08-09] MEDS ORDERED: SENNOSIDES-DOCUSATE SODIUM 1 EACH TAB PO SCH (21:00)
[2018-08-10] MEDS: LACTATED RINGERS 1,000 ML IV SCH (00:42)
[2018-08-10 04:16] VITALS: RESP 16
[2018-08-10] MEDS: HYDROcodone/APAP 5-325MG 1 EACH TAB PO PRN ×2 (04:55→10:41)
[2018-08-10 07:30] LABS: Basophils % (A) 0 %; Eosinophils # (A) 0.2 k/uL (0-0.7); Eosinophils % (A) 2 %; HCT 35.6 % (39.0-53.0); Lymphocytes # (A) 1.8 k/uL (1.0-4.8); Lymphocytes % (A) 18 %; MCH 30.7 pg (25.0-35.0); MCHC 32.8 g/dL (31.0-37.0); MCV 93.5 fL (80.0-100.0); Mean Platelet Volume 7.1; Monocytes # (A) 0.6 k/uL (0-1.0); Monocytes % (A) 6 %; Neutrophils # (A) 7.1 k/uL (1.3-7.7); Neutrophils % (A) 72 %; Platelet Count 186 k/uL (150-450); RBC 3.81 m/uL (4.30-5.90); RDW 13.3 % (11.5-15.5); WBC 9.9 k/uL (3.8-10.6)
[2018-08-10 07:47] LABS: HGB 11.7 gm/dL (13.0-17.5)
[2018-08-10] MEDS: ASPIRIN 325 MG TAB PO SCH (08:02)
[2018-08-10 08:08] VITALS: BP 106/71; PULSE 89; TEMP 98.1
--- NOTE | 2018-08-10 08:57 | P.DS ---
Providers Date of admission: 08/09/18 09:06 Expected date of discharge: 08/10/18 Attending physician: Alexander Curtis Consults: 08/09/18 13:05 Consult Physician Routine Consulting Provider: Hari Wood Consult Reason/Comments: medical management Do you want consulting provider notified?: Yes 08/09/18 13:09 Consult Physician Routine Consulting Provider: Wong Liriano Reason/Comments: medical management Do you want consulting provider notified?: Yes Primary care physician: Hari Wood - Discharge Diagnosis(es) (1) Osteoarthritis of right hip Current Visit: Yes Status: Acute (2) S/P total hip arthroplasty Current Visit: Yes Status: Acute Hospital Course: This is a 63-year-old male with known history of degenerative arthritis of the right hip. The patient presents for evaluation. After discussion and consid eration patient elects to proceed with total hip arthroplasty. The patient is seen preoperatively by Dr. Curtis and medically cleared for surgery by their primary care physician. Patient is admitted to [facility] on 08/09/2018 for total hip arthroplasty. The procedures performed without complication or sequelae. The patient is doing well postoperatively. Labs and vital signs are stable on day of discharge. On day of discharge patient's hip incision is healing well. There is minimal erythema. There is no drainage noted at this time. There is minimal soft tissue swelling to the hip and thigh. Patient has full foot and ankle motion without difficulty or pain. Calf is soft and nontender to palpation. Neurovascular status to the right lower extremity is intact. Patient is discharged home in good condition. Opioid start talking form is reviewed and signed at patient bedside. Please see med rec for accurate list of home medications. Plan - Discharge Summary Discharge Rx Participant: Yes New Discharge Prescriptions: New Aspirin 325 mg PO BID #60 tab HYDROcodone/APAP 5-325MG [Sargent 5-325] 1 - 2 tab PO Q6HR PRN #56 tab PRN Reason: Pain Sennosides [Senokot] 1 tab PO BID #60 tablet No Action Multivit-Min/FA/Lycopen/Lutein [Centrum Silver Tablet] 1 tab PO DAILY Acetaminophen Tab [Tylenol Tab] 500 mg PO DAILY PRN PRN Reason: Pain Ibuprofen [Motrin] 600 mg PO BID PRN PRN Reason: Pain Discharge Medication List Acetaminophen Tab [Tylenol Tab] 500 mg PO DAILY PRN 06/10/18 [History] Multivit-Min/FA/Lycopen/Lutein [Centrum Silver Tablet] 1 tab PO DAILY 06/10/18 [History] Ibuprofen [Motrin] 600 mg PO BID PRN 06/14/18 [History] Aspirin 325 mg PO BID #60 tab 08/10/18 [Rx] HYDROcodone/APAP 5-325MG [Sargent 5-325] 1 - 2 tab PO Q6HR PRN #56 tab 08/10/18 [Rx] Sennosides [Senokot] 1 tab PO BID #60 tablet 08/10/18 [Rx] Follow up Appointment(s)/Referral(s): Alexander Curtis DO [Doctor of Osteopathic Medicine] - 2 Weeks Activity/Diet/Wound Care/Special Instructions: Weightbearing as tolerated with walker. Leave dressing intact. Dressing may be removed by home care nurse or by patient in 10 days. May shower with dressing on. Please follow-up with [facility] in 2 weeks and call with any questions or concerns, . Discharge Disposition: HOME WITH HOME HEALTH SERVICES
[2018-08-10] MEDS ORDERED: FAMOTIDINE 20 MG TAB PO SCH (09:00)
[2018-08-10] MEDS ORDERED: MELOXICAM 7.5 MG TAB PO SCH (09:00)
--- NOTE | 2018-08-10 14:50 | P.PN ---
Subjective Progress Note Date: 08/10/18 This is a 63-year-old male patient of Dr. Wood with past medical history of benign prostatic hypertrophy, severe arthritis with bilateral hip pain since 1992. He recently came in the hospital in May underwent a left total hip arthroplasty which was done successfully and patient had no postop complications. Patient is now admitted under the care of Dr. Curtis for right total hip arthroplasty anterior approach. The patient is seen in the postop period. He denies any pain at this time. He has been started on clear liquids and tolerating without nausea or vomiting. Blood pressure is stable. 08/10: Hemoglobin is 11.7. Patient has been afebrile, heart rate ran in the 70s and 80s, blood pressure 106/71. The patient has been seen by orthopedic this morning and cleared for discharge. Patient has had no postop complications. He is tolerating diet. No chest pain or shortness of breath. Medication reconciliation has been reviewed. Review of Systems Constitutional: Denies chills, Denies fever Eyes: denies blurred vision, denies pain Ears, nose, mouth and throat: Denies headache, Denies sore throat Cardiovascular: Denies chest pain, Denies shortness of breath Respiratory: Denies cough Gastrointestinal: Denies abdominal pain, Denies diarrhea, Denies nausea, Denies vomiting Musculoskeletal: Denies myalgias Integumentary: Denies pruritus, Denies rash Neurological: Denies numbness, Denies weakness Psychiatric: Denies anxiety, Denies depression Endocrine: Denies fatigue, Denies weight change Objective - Vital Signs Vital signs: Vital Signs Temp 98.1 F 08/10/18 08:03 Pulse 89 08/10/18 08:03 Resp 16 08/10/18 08:03 BP 106/71 08/10/18 08:03 Pulse Ox 98 08/10/18 08:03 Intake & Output 08/09/18 08/10/18 08/10/18 18:59 06:59 18:59 Intake Total 1201 940 360 Output Total 250 900 Balance 951 40 360 Intake: IV 1201 Intake, IV Titration 940 Amount Sodium Chloride 0.9% 1, 940 000 ml @ 70 mls/hr IV . [id number] [facility] Rx#:[id number] Oral 360 Output: Urine 900 Estimated Blood Loss 250 - Exam Gen: This is a 63-year-old male. He is resting in recliner and appears to be comfortable and in no acute distress. HEENT: Head is atraumatic, normocephalic. Pupils equal, round. Sclerae is anicteric. NECK: Supple. No JVD. No lymphadenopathy. No thyromegaly. LUNGS: Clear to auscultation. No wheezes or rhonchi. No intercostal retractions. HEART: Regular rate and rhythm. No murmur. ABDOMEN: Soft. Bowel sounds are present. No masses. No tenderness. EXTREMITIES: No pedal edema. No calf tenderness. Dorsalis pedis +2 bilaterally. Patient has small dressing in place to the right anterior hip with no breakthrough bleeding or drainage. NEUROLOGICAL: Patient is awake, alert and oriented x3. Cranial nerves 2 through 12 are grossly intact. - Labs CBC & Chem 7: 08/10/18 07:01 Labs: Abnormal Lab Results - Last 24 Hours (Table) 08/10/18 Range/Units 07:01 RBC 3.81 L (4.30-5.90) m/uL Hgb 11.7 L D (13.0-17.5) gm/dL Hct 35.6 L (39.0-53.0) % Assessment and Plan Plan: 1. Osteoarthritis status post right total hip arthroplasty, anterior approach. Continue current plan per orthopedics, pain management, PT and OT and activity. 2. Benign prostatic hypertrophy. Monitor for urinary retention. 3. DVT prophylaxis. Aspirin 325 mg twice daily. 4. GI prophylaxis. Pepcid Discharge plan: Home with [facility] Impression and plan of care have been directed as dictated by the signing physician. Hollie Daniels nurse practitioner acting as scribe for signing physician.
== END 2018-08-10 12:25 | disposition home health service (06) | DRG 470 ==
LOC: 2ORMAIN 09:06 → 4SSUR 13:00
PROVIDERS: ADMIT Orthopaedic Surgery; ATTEND Orthopaedic Surgery
PROC: 0SR906A Replacement of Right Hip Joint with Oxidized Zirconium on Polyethylene Synthetic Substitute, Uncemented, Open Approach (ICD-10-PCS; principal; 2018-08-09 10:25)
DX: M16.11 Unilateral primary osteoarthritis, right hip (principal); N40.0 Benign prostatic hyperplasia without lower urinary tract symptoms; Z96.642 Presence of left artificial hip joint; Z87.891 Personal history of nicotine dependence; Z80.1 Family history of malignant neoplasm of trachea, bronchus and lung; Z80.7 Family history of other malignant neoplasms of lymphoid, hematopoietic and related tissues; Z83.0 Family history of human immunodeficiency virus [HIV] disease; Z82.49 Family history of ischemic heart disease and other diseases of the circulatory system; Z82.0 Family history of epilepsy and other diseases of the nervous system; Z83.49 Family history of other endocrine, nutritional and metabolic diseases
CPT/HCPCS: 36415; 73501; 85025; 86850; 86891; 86900; 86901; 88300

== ENCOUNTER 2019-12-14 11:25 | Emergency (ER) | payer BC ==
[2019-12-14 11:34] VITALS: RESP 18
--- NOTE | 2019-12-14 11:58 | ED ---
General Adult HPI - General Chief complaint: Fever Stated complaint: fever, bilat leg swelling Time Seen by Provider: 12/14/19 11:39 Source: patient, RN notes reviewed Mode of arrival: ambulatory Limitations: no limitations - History of Present Illness Initial comments: Patient is a pleasant 64-year-old male returning to the emergency department with fever. 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 Patient has had fevers for last 2 days, up to 101.2. Patient has had fevers following chemotherapy in the past as well. Patient has mild cough that is chronic, unchanged. No urinary symptoms. Patient states he was at his oncologist office yesterday and had blood and urine test done. He states he was sent to have chronic virus testing and ultrasound of his legs. Patient has been having some leg swelling at nighttime. Patient states it usually resolves in the morning. - Related Data Home Medications Medication Instructions Recorded Confirmed Lipase/Protease/Amylase [Clarita Tony 1 cap PO TID PRN 12/14/19 12/14/19 24,000 Units Capsule] Lipase/Protease/Amylase [Clarita Tony 2 cap PO TID-W/MEALS 12/14/19 12/14/19 24,000 Units Capsule] Omeprazole 40 mg PO DAILY 12/14/19 12/14/19 Ondansetron HCl [Zofran] 4 mg PO Q6H PRN 12/14/19 12/14/19 levoFLOXacin 500 mg PO DAILY 12/14/19 12/14/19 Allergies Allergy/AdvReac Type Severity Reaction Status Date / Time No Known Allergies Allergy Verified 12/14/19 11:33 Review of Systems ROS Statement: Those systems with pertinent positive or pertinent negative responses have been documented in the HPI. ROS Other: All systems not noted in ROS Statement are negative. Constitutional: Reports: fever, chills Eyes: Denies: eye pain ENT: Denies: ear pain Respiratory: Reports: as per HPI Cardiovascular: Denies: chest pain Endocrine: Reports: fatigue Gastrointestinal: Denies: abdominal pain, vomiting, diarrhea Genitourinary: Denies: dysuria Musculoskeletal: Denies: back pain Skin: Denies: rash Neurological: Denies: weakness Past Medical History Past Medical History: Cancer, Osteoarthritis (OA) Additional Past Medical History / Comment(s): recent cut to left hand no signs of infection to report to any signs of infection History of Any Multi-Drug Resistant Organisms: None Reported Past Surgical History: Joint Replacement Additional Past Surgical History / Comment(s): hemorrhoid removal 1995. LT GAMALIEL Past Anesthesia/Blood Transfusion Reactions: No Reported Reaction Past Psychological History: No Psychological Hx Reported Smoking Status: Former smoker Past Alcohol Use History: Daily Past Drug Use History: None Reported - Past Family History Father Family Medical History: Cancer Additional Family Medical History / Comment(s): state 4 lung cancer Mother Additional Family Medical History / Comment(s): Mother dies in her 90s from old age. Brother(s) Family Medical History: Cancer Additional Family Medical History / Comment(s): 5 siblings with addiction problems. One sister has brain aneurysm. One sister from nonhodgkins lymphoma with history of AIDS. Daughter(s) Additional Family Medical History / Comment(s): 2 children: 1 adopted, 1 biological General Exam Limitations: no limitations General appearance: alert, in no apparent distress Head exam: Present: normocephalic Eye exam: Present: normal appearance Neck exam: Present: normal inspection. Absent: tenderness Respiratory exam: Present: normal lung sounds bilaterally Cardiovascular Exam: Present: regular rate, normal rhythm GI/Abdominal exam: Present: soft. Absent: tenderness Extremities exam: Present: normal inspection Neurological exam: Present: alert Psychiatric exam: Present: normal affect, normal mood Skin exam: Present: normal color Course Vital Signs 12/14/19 11:30 Temperature 99 F Pulse Rate 96 Respiratory 18 Rate Blood Pressure 149/82 O2 Sat by Pulse 100 Oximetry - Reevaluation(s) Reevaluation #1: 12/14/19 11:58 Patient does not want blood work and urine test done at this time. Patient does not want Tylenol either. Medical Decision Making - Medical Decision Making Patient reevaluated and resting comfortably in bed. Patient updated on results and need for follow-up. Patient requesting discharge home. Case was discussed with practitioner Shannon burgess with Dr. Suazo who is okay with discharge. She states patient was written a prescription for Levaquin last night. Patient states he does have this and will take it. - Radiology Data Radiology results: report reviewed (Ultrasound negative for DVT), image reviewed (Chest x-ray shows mild infiltrate right infrahilar region) Disposition Clinical Impression: Fever Disposition: HOME SELF-CARE Condition: Stable Instructions (If sedation given, give patient instructions): Fever in Adults (ED) Additional Instructions: Please follow-up on the third with Dr. Suazo as scheduled. Return for difficulty breathing, increased weakness, uncontrolled fever, worsening symptoms or other concerns. Take Levaquin as prescribed. Is patient prescribed a controlled substance at d/c from ED?: No Referrals: Hari Wood MD [Primary Care Provider] - 1-2 days Time of Disposition: 14:19
--- NOTE | 2019-12-14 12:13 | XR ---
EXAMINATION TYPE: XR chest 2V DATE OF EXAM: 12/14/2019 COMPARISON: NONE TECHNIQUE: PA and lateral views submitted. HISTORY: Fever FINDINGS: There is no pneumothorax or pleural effusion. Mediport catheter seen and there is hyperinflation sug gestive COPD. There is patchy right upper lobe perihilar infiltrate. Hypertrophic and degenerative ch jorge of the spine. IMPRESSION: 1. COPD with patchy right perihilar infiltrate..
--- NOTE | 2019-12-14 13:15 | US ---
EXAMINATION TYPE: US venous doppler duplex LE BI DATE OF EXAM: 12/14/2019 1:03 PM COMPARISON: NONE CLINICAL HISTORY: swelling. Edema SIDE PERFORMED: Bilateral TECHNIQUE: The lower extremity deep venous system is examined utilizing real time linear array sonog dominguez with graded compression, doppler sonography and color-flow sonography. VESSELS IMAGED: External Iliac Vein (EIV) Common Femoral Vein Deep Femoral Vein Greater Saphenous Vein * Femoral Vein Popliteal Vein Small Saphenous Vein * Proximal Calf Veins (* superficial vessels) Right Leg: Negative for DVT Left Leg: Negative for DVT IMPRESSION: 1. No diagnostic evidence of DVT
[2019-12-14 14:39] VITALS: BP 148/88; PULSE 87; TEMP 99.1
== END 2019-12-14 14:39 | disposition home or self-care (01) ==
LOC: EC 11:25
DX: R50.9 Fever, unspecified (principal); M79.89 Other specified soft tissue disorders; R05 Cough; M19.90 Unspecified osteoarthritis, unspecified site; Z79.899 Other long term (current) drug therapy; Z20.828 Contact with and (suspected) exposure to other viral communicable diseases; Z53.20 Procedure and treatment not carried out because of patient's decision for unspecified reasons; Z87.891 Personal history of nicotine dependence; Z96.642 Presence of left artificial hip joint; Z85.79 Personal history of other malignant neoplasms of lymphoid, hematopoietic and related tissues; Z92.21 Personal history of antineoplastic chemotherapy
CPT/HCPCS: 71046; 93970; 99284; U0003

== ENCOUNTER → 2020-02-10 | Outpatient (CLI) | payer BC ==
--- NOTE | 2020-02-12 07:13 | PE ---
EXAMINATION TYPE: PET CT fusion skull to thigh DATE OF EXAM: 02/10/2020 COMPARISON: Same day diagnostic CT HISTORY: Pancreatic cancer initial staging study. TECHNIQUE: Following the intravenous administration of 11.55 mCi of F-18 FDG, whole body images are performed from the skull base to the midthigh. Images are reviewed on the computer in the coronal, a xial, and sagittal planes. Reconstructed rotating images are created on independent workstation and reviewed on the computer. A localization noncontrast CT is performed in conjunction with the PET sc an. SCAN: Initial Scan FINDINGS: SKULL BASE AND NECK: No areas of suspicious hypermetabolic uptake. CHEST, MEDIASTINUM, AND HILAR REGION: No areas of suspicious hypermetabolic uptake. ABDOMEN AND PELVIS: There is central metallic biliary stent through poorly visualized hypermetabolic pancreatic head/uncinate process mass estimated roughly 2 to 3 cm AP diameter by 2 to 3 cm transverse ly, max SUV is 6.97. Remainder of pancreas shows diffuse ductal dilatation distally. There are multiple intrahepatic thin-walled cysts of varying size and shape. Central pneumobilia is p resent without suspicious ductal dilatation. Besides thin-walled cyst there are multiple heterogeneou s hypodense metastatic lesions, for reference there is 4.0 cm lesion long axis segment 133 left hepat ic lobe medial segment, max SUV is 5.03. For reference there is 3.8 cm lesion long axis posterior cys t superior segment right hepatic lobe axial image 133, max SUV is 5.15. Underlying hepatomegaly noted . For reference there is 4.9 cm long axis lateral inferior segment left hepatic lobe lesion, max SUV is 5.2 on image 164. Left pelvic uptake near image 234 favored along course of left ureter, streak artifact from adjacent hip arthroplasty limits evaluation on CT correlate. OSSEOUS STRUCTURES: No suspicious hypermetabolic uptake. OTHER CT: There is right internal jugular Mediport catheter terminating in SVC. Mild underlying emphy sematous change is felt present. Trace right pleural effusion. Tiny right paracolic ascites. Moderate pelvic ascites. Metallic artifact bilateral hip arthroplasty c auses streak artifact limiting evaluation of pelvic structures. IMPRESSION: Demonstration of known pancreatic malignancy with multiple hepatic metastatic deposits as detailed above.
--- NOTE | 2020-02-12 07:40 | CT ---
EXAMINATION TYPE: CT ChestAbdPelvis w con DATE OF EXAM: 02/10/2020 COMPARISON: Same date PET/CT HISTORY: Pancreatic cancer CT DLP: 621.7 mGycm. Automated Exposure Control for Dose Reduction was Utilized. CONTRAST: CT scan of the thorax, abdomen and pelvis is performed without oral but with IV Contrast, patient inj ected with 120 mL of Isovue 370. FINDINGS: LUNGS: [id number] underlying emphysematous change. Mild dependent atelectasis both lower lungs. Mild linear atelectasis or scarring diaphragms MEDIASTINUM: There are no greater than 1 cm hilar or mediastinal lymph nodes. No cardiomegaly or pe ricardial effusion is seen. OTHER: Right internal jugular Mediport catheter terminates in SVC. LIVER/GB: Hepatomegaly with multiple heterogeneous hypodense lesions scattered throughout the liver c onsistent with thin-walled cyst and additional vague hypodense lesions corresponding to metastatic le sions on recent PET/CT. There is central pneumobilia is present. This is consistent with patency of m etallic internal biliary stent. Trace inferior right sided ascites. PANCREAS: Heterogeneous hypodense mass pancreatic head level measures roughly 5 to 6 cm craniocaudal length by 3.7 x 3.3 cm axial image 182 consistent with central neoplasm. There is ductal dilatation g reatest in the proximal to mid body noted. SMA is not encased. Local mass effect with indistinct hiral ins from duodenal sweep noted. The lesion abuts the anterior aspect of the IVC. SPLEEN: Spleen measures upper limits of normal in size.. ADRENALS: No significant abnormality is seen. KIDNEYS: No significant abnormality is seen. BOWEL: Sigmoid colonic diverticulosis. Evaluation of bowel slightly suboptimal secondary to lack of e nteric contrast. No convincing CT evidence for acute diverticulitis. No suspicious small large bowel dilatation. GENITAL ORGANS: No gross abnormality seen. LYMPH NODES: No greater than 1cm abdominal or pelvic lymph nodes are appreciated. OSSEOUS STRUCTURES: Metallic artifact from bilateral hip arthroplasty causes streak artifact limiting evaluation of pelvic structures. OTHER: Moderate amount of free fluid in pelvis extending anteriorly. IMPRESSION: Demonstration of known pancreatic head mass or neoplasm with central metallic patent bili brianna stent. Hepatomegaly with multiple hepatic benign thin-walled cysts and multiple hepatic metastat ic lesions, latter seen much better on recent PET/CT.
== END | disposition home or self-care (01) ==
LOC: RADPETMAIN 07:32
PROVIDERS: ATTEND Internal Medicine
DX: C78.7 Secondary malignant neoplasm of liver and intrahepatic bile duct (principal); C25.8 Malignant neoplasm of overlapping sites of pancreas; R16.0 Hepatomegaly, not elsewhere classified
CPT/HCPCS: 78815; 71260; 74177; A9552; Q9967